=== PATIENT | male | born 1965 | race Caucasian/White ===

== ENCOUNTER 2024-05-20 21:13 | Observation (INO) | payer MEDICAID, OTHER ==
--- NOTE | 2024-05-20 21:49 | ERPHSYRPT ---
- History of Present Illness Time Seen by Provider: 05/20/24 21:40 Source: patient, family Exam Limitations: clinical condition Physician History: This is a 58-year-old white male patient brought into the emergency department by private vehicle escorted by the patient's secondary to relatively sudden onset of confusion. Patient was last known well approximately 8 PM while watching a sports event. He initially had some periods of confusion. When he went home he fell at home but did not hit his head. He is a daily smoker of cigarettes. The patient's spouse provided independent, additional history because the patient was not thinking to clearly. Patient arrives to the hospital emergency department with an initial systolic blood pressure of 225 mmHg. The second systolic blood pressure reading was 157. Patient currently denies having chest pain. However, his reminded him that he has had episodes of chest pain intermittently last week. Patient does smoke tobacco cigarettes daily. 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 His NIH score is 4. He denies headache. He denies shortness of breath. He denies abdominal pain. He has had no nausea vomiting or diarrhea symptoms. In the emergency department, his main deficit is his speech. He is moving all his extremities. There is no facial droop and his tongue is midline. He has equal strength in all of his extremities. Timing/Duration: today Severity: moderate Character of Deficits: impaired speech Baseline/Normal Cognition: alert oriented x 3 Current Cognition: alert oriented x 3 Baseline Gait: walks w/o assistance Associated Symptoms: confusion, slurred speech Allergies/Adverse Reactions: No Known Drug Allergies Allergy (Verified 05/20/24 22:16) Home Medications: No Reportable Medications [No Reported Medications] 05/20/24 [History] Travel Risk - International Travel Have you traveled outside of the country in past 3 weeks: No - Emerging Infectious Disease Are you exhibiting symptoms associated with any current EIDs: No - Review of Systems Constitutional: No Symptoms Eyes: No Symptoms Ears, Nose, & Throat: No Symptoms Respiratory: No Symptoms Cardiac: No Symptoms Abdominal/Gastrointestinal: No Symptoms Genitourinary Symptoms: No Symptoms Musculoskeletal: No Symptoms Skin: No Symptoms Neurological: Speech Changes, No Headache Psychological: No Symptoms Endocrine: No Symptoms Hematologic/Lymphatic: No Symptoms, Easy Bruising Immunological/Allergic: No Symptoms All Other Systems: Reviewed and Negative - Past Medical History Pertinent Past Medical History: No - Nursing Vital Signs Nursing Vital Signs: Initial Vital Signs Temperature 98.3 F 05/20/24 21:27 Pulse Rate 87 05/20/24 21:27 Respiratory Rate 16 05/20/24 21:27 Blood Pressure 225/141 05/20/24 21:27 O2 Sat by Pulse Oximetry 99 05/20/24 21:27 Pain Scale Pain Intensity 0 - Effie Coma Scale Best Eye Response (Effie): (4) open spontaneously Best Verbal Response (Effie): (5) oriented Best Motor Response (Carrie): (6) obeys commands Carrie Total: 15 - Physical Exam General Appearance: no apparent distress, alert, anxiety Eye Exam: bilateral eye: normal inspection, PERRL, EOMI Ears, Nose, Throat Exam: normal ENT inspection, moist mucous membranes Neck Exam: normal inspection, non-tender, supple, full range of motion Respiratory: normal breath sounds, lungs clear, airway intact, No chest tenderness, No respiratory distress Cardiovascular: regular rate/rhythm, normal heart sounds, normal peripheral puls es Gastrointestinal: soft, normal bowel sounds, No tenderness Rectal Exam: not done Back Exam: normal inspection, normal range of motion, No CVA tenderness, No vertebral tenderness Extremity Exam: normal inspection, normal range of motion, pelvis stable Mental Status: alert, oriented 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 QTc is 437) Ordered Tests: Active Orders 24 hr Category Date Time Status Electronic Technician STAT Care 05/20/24 21:49 Active EKG-ER Only STAT Care 05/20/24 21:49 Active IV Insertion STAT Care 05/20/24 21:49 Active NPO (ED) STAT Care 05/20/24 21:49 Active POCT Glucose Check STAT Care 05/20/24 21:49 Active Pulse Oximetry (ED) STAT Care 05/20/24 21:[address] ANGIOGRAPHY NECK [CT] Stat Exams 05/20/24 23:40 Completed CTA HEAD W AND/OR WO CONTRAST [CT] Stat Exams 05/20/24 23:41 Completed HEAD WITHOUT CONTRAST [CT] Stat Exams 05/20/24 21:43 Taken CBC W DIFF Stat Lab 05/20/24 21:52 Completed CMP Stat Lab 05/20/24 21:52 Completed MONO SCREEN Stat Lab 05/20/24 21:52 Completed TROPONIN Q4H Lab 05/20/24 22:00 Completed TROPONIN Q4H Lab 05/21/24 02:30 Ordered TROPONIN Q4H Lab 05/21/24 06:30 Ordered UA W/RFX UR CULTURE Stat Lab 05/20/24 22:26 Completed Urine Triage Profile Stat Lab 05/20/24 22:33 Completed Medication Summary Generic Name Dose Route Start Last Admin Trade Name Freq PRN Reason Stop Dose Admin Sodium Chloride 500 mls @ 50 mls/hr 05/20/24 22:45 05/21/24 00:07 Sodium Chloride 0.9% 500 Ml IV 06/19/24 22:44 50 mls/hr .Q10H JEFFREY Administration Discontinued Medications Generic Name Dose Route Start Last Admin Trade Name Freq PRN Reason Stop Dose Admin Alteplase, Recombinant 80 mg 05/21/24 00:19 05/21/24 00:49 Alteplase 100 Mg Vial IV 05/21/24 00:20 Not Given STAT STA Aspirin 81 mg 05/20/24 23:34 05/21/24 00:05 Aspirin 81 Mg Tab.Chew PO 05/20/24 23:35 81 mg STAT ONE Administration Aspirin Confirm 05/21/24 00:03 Aspirin 81 Mg Tab.Chew Administered 05/21/24 00:04 Dose 81 mg .ROUTE .STK-MED ONE Atorvastatin Calcium 40 mg 05/20/24 23:35 05/21/24 00:06 Atorvastatin Calcium 40 Mg Tablet PO 05/20/24 23:36 40 mg STAT STA Administration Atorvastatin Calcium Confirm 05/21/24 00:04 Atorvastatin Calcium 40 Mg Tablet Administered 05/21/24 00:05 Dose 40 mg .ROUTE .STK-MED ONE Clopidogrel Bisulfate 300 mg 05/20/24 23:34 05/21/24 00:06 Clopidogrel Bisulfate 75 Mg Tablet PO 05/20/24 23:35 300 mg STAT ONE Administration Clopidogrel Bisulfate Confirm 05/21/24 00:04 Clopidogrel Bisulfate 75 Mg Tablet Administered 05/21/24 00:05 Dose 300 mg .ROUTE .STK-MED ONE Hydralazine HCl 10 mg 05/20/24 22:05 05/21/24 00:20 Hydralazine Hcl 20 Mg/Ml Vial IV 05/20/24 22:06 Not Given STAT ONE Lab/Rad Data: Laboratory Result Diagrams 05/20/24 21:52 05/20/24 21:52 Laboratory Results 05/20/24 05/20/24 05/20/24 Range/Units 22:33 22:26 22:00 WBC (4.23-9.07) x10^3/uL RBC (4.63-6.08) x10^6/uL Hgb (13.7-17.5) g/dL Hct (40.1-51.0) % MCV (79.0-92.2) fL MCH (25.7-32.2) pg MCHC (32.3-36.5) g/dL RDW (11.6-14.4) % Plt Count (163-337) x10^3/uL MPV (9.4-12.4) fL Gran % (34.0-67.9) % Immature Gran % (Auto) (0.001-0.429) % Nucleat RBC Rel Count (0.00-0.2) % Eos # (Auto) (0.04-0.54) x10^3/uL Immature Gran # (Auto) (0.001-0.031) x10^3u/L Absolute Lymphs (auto) (1.32-3.57) x10^3/uL Absolute Monos (auto) (0.30-0.82) x10^3/uL Absolute Nucleated RBC (0.00-0.012) x10^3u/L Lymphocytes % (21.8-53.1) % Monocytes % (5.3-12.2) % Eosinophils % (0.8-7.0) % Basophils % (0.2-1.2) % Absolute Granulocytes (1.78-5.38) x10^3/uL Basophils # (0.01-0.08) x10^3/uL Sodium (135-145) mmol/L Potassium (3.5-5.1) mmol/L Chloride (98-107) mmol/L Carbon Dioxide (22-30) mmol/L Anion Gap (5-15) MEQ/L BUN (9-20) mg/dL Creatinine (0.66-1.25) mg/dL Estimated GFR ML/MIN Glucose (74-106) mg/dL Calcium (8.4-10.2) mg/dL Total Bilirubin (0.2-1.3) mg/dL AST (17-59) U/L ALT (0-50) U/L Alkaline Phosphatase (38-126) U/L Troponin I < 0.012 (0.000-0.033) ng/mL Serum Total Protein (6.3-8.2) g/dL Albumin (3.5-5.0) g/dL Urine Color Yellow (Yellow) Urine Appearance Clear (Clear) Urine pH 5.5 (4.6-8.0) Ur Specific [place] 1.020 (1.005-1.030) Urine Protein Negative (Negative) Urine Glucose (UA) Negative (Negative) mg/dL Urine Ketones Negative (Negative) Urine Blood Negative (Negative) Urine Nitrite Negative (Negative) Urine Bilirubin Negative (Negative) Urine Urobilinogen 1.0 A (0.2) mg/dL Ur Leukocyte Esterase Negative (Negative) U Hyaline Cast (Auto) NONE SEEN (0-2) /LPF Urine Microscopic RBC 0-2 (0-5) /HPF Urine Microscopic WBC 0-2 (0-5) /HPF Ur Epithelial Cells None Seen (None Seen) /HPF Urine Bacteria None Seen (None Seen) /HPF Urine Culture Reflexed NO (NO) Urine Opiates Level NEGATIVE (NEGATIVE) Ur Methadone NEGATIVE (NEGATIVE) Urine Barbiturates NEGATIVE (NEGATIVE) Ur Phencyclidine (PCP) NEGATIVE (NEGATIVE) Urine Amphetamine NEGATIVE (NEGATIVE) U Benzodiazepine Level NEGATIVE (NEGATIVE) Urine Cocaine NEGATIVE (NEGATIVE) Urine Marijuana (THC) NEGATIVE (NEGATIVE) Monoscreen (NEGATIVE) Influenza Type A Ag (NEGATIVE) Influenza Type B Ag (NEGATIVE) RSV (PCR) (NEGATIVE) SARS-CoV-2 (PCR) (NEGATIVE) 05/20/24 05/20/24 05/20/24 Range/Units 21:52 21:52 21:52 WBC 7.5 (4.23-9.07) x10^3/uL RBC 4.93 (4.63-6.08) x10^6/uL Hgb 14.1 (13.7-17.5) g/dL Hct 42.0 (40.1-51.0) % MCV 85.2 (79.0-92.2) fL MCH 28.6 (25.7-32.2) pg MCHC 33.6 (32.3-36.5) g/dL RDW 13.6 (11.6-14.4) % Plt Count 274 (163-337) x10^3/uL MPV 8.7 L (9.4-12.4) fL Gran % 57.1 (34.0-67.9) % Immature Gran % (Auto) 0.3 (0.001-0.429) % Nucleat RBC Rel Count 0.0 (0.00-0.2) % Eos # (Auto) 0.17 (0.04-0.54) x10^3/uL Immature Gran # (Auto) 0.02 (0.001-0.031) x10^3u/L Absolute Lymphs (auto) 2.28 (1.32-3.57) x10^3/uL Absolute Monos (auto) 0.66 (0.30-0.82) x10^3/uL Absolute Nucleated RBC 0.00 (0.00-0.012) x10^3u/L Lymphocytes % 30.6 (21.8-53.1) % Monocytes % 8.9 (5.3-12.2) % Eosinophils % 2.3 (0.8-7.0) % Basophils % 0.8 (0.2-1.2) % Absolute Granulocytes 4.26 (1.78-5.38) x10^3/uL Basophils # 0.06 (0.01-0.08) x10^3/uL Sodium 141 (135-145) mmol/L Potassium 3.5 (3.5-5.1) mmol/L Chloride 104 (98-107) mmol/L Carbon Dioxide 29 (22-30) mmol/L Anion Gap 11.6 (5-15) MEQ/L BUN 22 H (9-20) mg/dL Creatinine 1.24 (0.66-1.25) mg/dL Estimated GFR 66.6 ML/MIN Glucose 124 H (74-106) mg/dL Calcium 9.7 (8.4-10.2) mg/dL Total Bilirubin 0.60 (0.2-1.3) mg/dL AST 33 (17-59) U/L ALT 26 (0-50) U/L Alkaline Phosphatase 70 (38-126) U/L Troponin I (0.000-0.033) ng/mL Serum Total Protein 6.9 (6.3-8.2) g/dL Albumin 4.3 (3.5-5.0) g/dL Urine Color (Yellow) Urine Appearance (Clear) Urine pH (4.6-8.0) Ur Specific [place] (1.005-1.030) Urine Protein (Negative) Urine Glucose (UA) (Negative) mg/dL Urine Ketones (Negative) Urine Blood (Negative) Urine Nitrite (Negative) Urine Bilirubin (Negative) Urine Urobilinogen (0.2) mg/dL Ur Leukocyte Esterase (Negative) U Hyaline Cast (Auto) (0-2) /LPF Urine Microscopic RBC (0-5) /HPF Urine Microscopic WBC (0-5) /HPF Ur Epithelial Cells (None Seen) /HPF Urine Bacteria (None Seen) /HPF Urine Culture Reflexed (NO) Urine Opiates Level (NEGATIVE) Ur Methadone (NEGATIVE) Urine Barbiturates (NEGATIVE) Ur Phencyclidine (PCP) (NEGATIVE) Urine Amphetamine (NEGATIVE) U Benzodiazepine Level (NEGATIVE) Urine Cocaine (NEGATIVE) Urine Marijuana (THC) (NEGATIVE) Monoscreen NEGATIVE (NEGATIVE) Influenza Type A Ag (NEGATIVE) Influenza Type B Ag (NEGATIVE) RSV (PCR) (NEGATIVE) SARS-CoV-2 (PCR) (NEGATIVE) 05/20/24 Range/Units 21:50 WBC (4.23-9.07) x10^3/uL RBC (4.63-6.08) x10^6/uL Hgb (13.7-17.5) g/dL Hct (40.1-51.0) % MCV (79.0-92.2) fL MCH (25.7-32.2) pg MCHC (32.3-36.5) g/dL RDW (11.6-14.4) % Plt Count (163-337) x10^3/uL MPV (9.4-12.4) fL Gran % (34.0-67.9) % Immature Gran % (Auto) (0.001-0.429) % Nucleat RBC Rel Count (0.00-0.2) % Eos # (Auto) (0.04-0.54) x10^3/uL Immature Gran # (Auto) (0.001-0.031) x10^3u/L Absolute Lymphs (auto) (1.32-3.57) x10^3/uL Absolute Monos (auto) (0.30-0.82) x10^3/uL Absolute Nucleated RBC (0.00-0.012) x10^3u/L Lymphocytes % (21.8-53.1) % Monocytes % (5.3-12.2) % Eosinophils % (0.8-7.0) % Basophils % (0.2-1.2) % Absolute Granulocytes (1.78-5.38) x10^3/uL Basophils # (0.01-0.08) x10^3/uL Sodium (135-145) mmol/L Potassium (3.5-5.1) mmol/L Chloride (98-107) mmol/L Carbon Dioxide (22-30) mmol/L Anion Gap (5-15) MEQ/L BUN (9-20) mg/dL Creatinine (0.66-1.25) mg/dL Estimated GFR ML/MIN Glucose (74-106) mg/dL Calcium (8.4-10.2) mg/dL Total Bilirubin (0.2-1.3) mg/dL AST (17-59) U/L ALT (0-50) U/L Alkaline Phosphatase (38-126) U/L Troponin I (0.000-0.033) ng/mL Serum Total Protein (6.3-8.2) g/dL Albumin (3.5-5.0) g/dL Urine Color (Yellow) Urine Appearance (Clear) Urine pH (4.6-8.0) Ur Specific [place] (1.005-1.030) Urine Protein (Negative) Urine Glucose (UA) (Negative) mg/dL Urine Ketones (Negative) Urine Blood (Negative) Urine Nitrite (Negative) Urine Bilirubin (Negative) Urine Urobilinogen (0.2) mg/dL Ur Leukocyte Esterase (Negative) U Hyaline Cast (Auto) (0-2) /LPF Urine Microscopic RBC (0-5) /HPF Urine Microscopic WBC (0-5) /HPF Ur Epithelial Cells (None Seen) /HPF Urine Bacteria (None Seen) /HPF Urine Culture Reflexed (NO) Urine Opiates Level (NEGATIVE) Ur Methadone (NEGATIVE) Urine Barbiturates (NEGATIVE) Ur Phencyclidine (PCP) (NEGATIVE) Urine Amphetamine (NEGATIVE) U Benzodiazepine Level (NEGATIVE) Urine Cocaine (NEGATIVE) Urine Marijuana (THC) (NEGATIVE) Monoscreen (NEGATIVE) Influenza Type A Ag NEGATIVE (NEGATIVE) Influenza Type B Ag NEGATIVE (NEGATIVE) RSV (PCR) NEGATIVE (NEGATIVE) SARS-CoV-2 (PCR) NEGATIVE (NEGATIVE) - Progress Progress: improved, re-examined Progress Note: 05/20/24 22:30 My medical decision making and the assignment of high complexity to this jessica ent's medical issue today is based on review of the patient's past medical history, review the patient's medication list, reviewed patient drug allergy list, history present illness and physical findings on examination. The workup in this patient includes placement of intravenous line, CBC, CMP, troponin level, twelve-lead EKG, stat CT scan of the head without contrast on arrival, urinalysis, urine drug screen, viral swabs, magnesium level Differential diagnosis includes was not limited to acute intracranial abnormality, electrolyte abnormality, dehydration, myocardial infarction, arrhythmia, urinary tract infection, dehydration 05/20/24 22:[address] scan of the head without contrast was interpreted by the radiologist. The report reads no comparison studies. Nonacute senile brain with remote lacunar infarcts left basal ganglia and left caudate lobe 05/20/24 23:02 The teleneurologist, Dr. Vazquez evaluated this patient. He feels this patient is a candidate for tPA. He spoke with the patient and the patient's spouse in detail. He states and I agree that there are no contraindications for this patient receiving the tPA. We will provide the initial bolus dose of 8 mg intravenously followed by the remaining 72 mg intravenously over an hour. We will be transferring this patient. He also recommended to keep the systolic blood pressure less than 185 and the diastolic blood pressure less than 110 and. He prefers labetalol over hydralazine but both medications can be used if needed. 05/20/24 23:35 Dr. Vazquez, the teleneurologist, called back and told us to hold off on provide this patient tPA. He reexamined the patient just before starting the tPA. He wanted to be sure that the patient's symptoms were still present. However, he reexamined the patient and the symptoms have completely resolved. Therefore he recommended the CTA of the head as well as CT angiography of the neck and placement in the hospital with stroke workup. He also recommends Plavix bolus of 300 mg orally now followed by Plavix 75 mg orally each night for 21 days. He also recommends 81 mg of aspirin now and orally each morning. In addition, he recommends atorvastatin 40 mg now and daily. 05/21/24 00:36 CT angiography of the neck shows no evidence of significant vascular abnormalities, stenosis or aneurysm. This study was interpreted by the radiologist. CTA of the head was interpreted by the radiologist and I reviewed the impression. This study is normal. There is no evidence of significant vascular abnormality. There is a small focal area of hypodensity in the left caudate head nucleus. The age is indeterminate. MRI of the brain recommended. 05/21/24 01:[address] Ocampo, our telehospitalist. I reviewed the patient history, presenting complaint, physical findings on examination and the workup results with him as well as my discussion with the teleneurologist and that recommended inpatient stroke workup. He agrees to place this patient in observation. Will place him on a monitored bed. Discussed with : Juanita Counseled pt/family regarding: lab results, diagnosis, rad results Medical Desision Making - Independent Historian Additional History obtained from: Spouse - Discussion of managment Care discussed with:: hospitalist (Dr. Ocampo and teleneurologist Dr. Vazquez) - Diagnostic Testing Diagnostic test were ordered, analyzed, and reviewed by me: Yes Radiological Interpretation: Reviewed by me, Teleradiologist Report - Risk of complications The pt has a high risk of morbidity or mortality based on: Decision regarding hospitilization or escalation of hosp level of care - Departure Departure Disposition: Observation Clinical Impression: CVA (cerebral vascular accident), Aphasia Condition: Stable Critical Care Time: Yes Critical Care Time(excluding separately billable procedures): Critical 30-74 mins (55) Referrals: DOCTOR,NO FAMILY [Primary Care Provider] - Follow up/PCP as directed
[2024-05-20 21:55] LABS: Absolute Neutrophil Ct (ANC) 4.26 x10^3/uL (1.78-5.38); BASOPHIL % 0.8 % (0.2-1.2); Basophil (Absolute #) 0.06 x10^3/uL (0.01-0.08); Eosinophil % 2.3 % (0.8-7.0); Eosinophil (Absolute #) 0.17 x10^3/uL (0.04-0.54); Hemoglobin 14.1 g/dL (13.7-17.5); IMMATURE GRAN # 0.02 x10^3u/L (0.001-0.031); IMMATURE GRAN % 0.3 % (0.001-0.429); Lymphocyte (Absolute #) 2.28 x10^3/uL (1.32-3.57); Lymphocytes % 30.6 % (21.8-53.1); Mean Cell Volume 85.2 fL (79.0-92.2); Mean Corpuscular Hemoglobin 28.6 pg (25.7-32.2); Mean Corpuscular Hgb Concent. 33.6 g/dL (32.3-36.5); Mean Platelet Volume 8.7 fL (9.4-12.4); Monocyte (Absolute #) 0.66 x10^3/uL (0.30-0.82); Monocytes % 8.9 % (5.3-12.2); Neutrophil % 57.1 % (34.0-67.9); Platelet Count 274 x10^3/uL (163-337); Red Blood Count 4.93 x10^6/uL (4.63-6.08); Red Cell Distribution Width 13.6 % (11.6-14.4); White Blood Count 7.5 x10^3/uL (4.23-9.07)
[2024-05-20 22:06] LABS: ALBUMIN 4.3 g/dL (3.5-5.0); ANION GAP 11.6 MEQ/L (5-15); BILIRUBIN,TOTAL 0.6 mg/dL (0.2-1.3); Calcium 9.7 mg/dL (8.4-10.2); Creatinine 1 1.24 mg/dL (0.66-1.25); EST GLOMERULAR FILTRATION RATE 66.6 ML/MIN; Potassium 3.5 mmol/L (3.5-5.1); Total Protein 6.9 g/dL (6.3-8.2)
[2024-05-20 22:34] LABS: Appearance Clear (Clear); Bacteria None Seen /HPF (None Seen); Bilirubin Negative (Negative); Blood Negative (Negative); Epithelial Cells None Seen /HPF (None Seen); Glucose, Urine Negative (Negative); Hyaline Casts NONE SEEN /LPF (0-2); Ketones Negative (Negative); Leukocyte Esterase Negative (Negative); Nitrite Negative (Negative); Ph 5.5 (4.6-8.0); Protein,Urine Dip Negative (Negative); RBC 0-2 /HPF (0-5); WBC 0-2 /HPF (0-5)
[2024-05-20 22:43] LABS: INFLUENZA A NEGATIVE (NEGATIVE); INFLUENZA B NEGATIVE (NEGATIVE); RESPIRATORY SYNCTIAL VIRUS NEGATIVE (NEGATIVE); SARS-CoV-2 Xpert Express NEGATIVE (NEGATIVE)
[2024-05-20 22:55] LABS: Amphetamine,Urine NEGATIVE (NEGATIVE); Barbiturate,Urine NEGATIVE (NEGATIVE); Benzodiazepine,Urine NEGATIVE (NEGATIVE); Cocaine,Urine NEGATIVE (NEGATIVE); Methadone,Urine NEGATIVE (NEGATIVE); Opiate,Urine NEGATIVE (NEGATIVE); PCP,Urine NEGATIVE (NEGATIVE); THC,Urine NEGATIVE (NEGATIVE)
--- NOTE | 2024-05-20 23:30 | PCM.CONS ---
History of Present Illness - Neuro Consultation Date of Consultation Date: 05/20/24 ED Arrival Date & Time: 05/20/24 21:13 Providers: Attending Provider: ED Provider: BRIONNA HUNTER Consulting Provider: ROYAL CORMIER DO cc:: The requesting physician will be sent a copy of the consult. - Chief Complaint Patient Subjective Stated Complaint: difficulty speaking - History of Present Illness HPI: right-handed. MedHx: HLD, HTN but on no meds. LKW 1999 today. has difficulty speaking since 8pm tonight. he was watching a volleyball, his granddaughter asked him for food, but he had difficulty getting money out of his wallet. drove home, then he fell at home. he seemed confused on the car ride home. he reported his right hand felt tingling and his legs felt funny. no similar episodes before. no stroke hx. denies any weakness. BP on arrival 224/140, lowered on its own 164/94. no blood thinners. no aspirin. Known stroke risk factors:: Hypertension, Dyslipidemia Review of Systems - Review of Systems Review of Systems (Narrative): Pertinent positive and negative findings as per HPI. All other systems negative. - Past Medical History Past Medical History: No Neurological History: No Pertinent History Cardiac History: Hypertension - Past Surgical History Past Surgical History: Yes Other Surgical History: hand surgery - Social History Smoking Status: Current every day smoker How long have you smoked: 45 Exposure to second hand smoke: No Alcohol: None Drug Use: none - Social Determinants of Health Will the patient participate in the screening: Yes Do you worry about a steady place to live?: No Do you have any problems with any of the following?: No known problems In the past 12 months,have you had to go without utilities?: No Have you or anyone in your house had to go without enough: No Transportation Issues: No Has anyone in your support network made you feel unsafe?: No Physical Exam - Vital Signs Vital Signs: Vital Signs - 24 hr 05/20/24 05/20/24 05/20/24 21:27 21:49 22:04 Temperature 98.3 F Pulse Rate 87 Respiratory 16 Rate Blood Pressure 157/100 Blood Pressure 225/141 [Right Arm] O2 Sat by Pulse 99 99 97 Oximetry 05/20/24 05/20/24 22:30 23:01 Temperature Pulse Rate 65 59 L Respiratory 18 13 Rate Blood Pressure 164/95 161/89 Blood Pressure [Right Arm] O2 Sat by Pulse 97 99 Oximetry - Physical Exam Tele-Neuro Physical Exam (Narrative): Gen: Well developed, well nourished. No acute distress. MS: Awake and oriented. Alert. Fund of knowledge, memory difficult to test given aphasia. comprehension intact, fluency mild to moderately impaired. articulation slightly impaired. CV: Regular rate. No edema. emergency services director: [place], EOMI. +blink. Unable to visualize fundi. Sensation intact. Face is symmetric. Hearing intact. Shoulder shrug intact. Tongue midline. Motor: Antigravity in all 4 extremities. Normal tone and bulk. Sens: reduced light touch on RUE. MSR: Unable to assess through telemedicine, no clonus noted. Mvmt: No tremors noted. RAFAEL/FTN intact. Gait: Deferred. NIH Stroke Scale NIH Stroke Scale Score: 3 1. Level of Consciousness: 0 : alert; keenly responsive. 1a. LOC Questions: 0 : Answers both questions correctly. 1b. LOC Commands: 0 : Performs both tasks correctly. 2. Best Gaze: 0 : Normal. 3. Visual: 0 : No visual loss. 4. Facial Palsy: 0 : Normal symmetrical movements. 5a. Motor Left Arm: 0 : No drift; limb holds 90 (or 45) degrees for full 10 seconds. 5b. Motor Right Arm : 0 : No drift; limb holds 90 (or 45) degrees for full 10 seconds. 6a. Motor Left Le : No drift; leg holds 30-degree position for full 5 seconds. 6b. Motor Right Le : No drift; leg holds 30-degree position for full 5 seconds. 7. Limb Ataxia: 0 : Absent. 8. Sensory: 1 : Mafn-bu-nuhyjobg sensory loss; patient feels pinprick is less sharp or is dull on the affected side; or there is a loss of superficial pain with pinprick, but patient is aware of being touched. 9. Best Language: 1 : Ivho-aj-kdvtapyy aphasia; some obvious loss of fluency or facility of comprehension, without significant limitation on ideas expressed or form of expression. Reduction of speech and/or comprehension, however, makes conversation about provided materials difficult or impossible. For example, in conversation about provided materials, examiner can identify picture or naming card content from patients response. 10. Dysarthria: 1 : Qxzy-zv-izjdlrld dysarthria; patient slurs at least some words and, at worst, can be understood with some difficulty. 11. Extinction and inattention (formerly Neglect) : 0 : No abnormality. NIHSS Entry Time: 05/20/2024 10:56:43 PM ET - NIHSS Stroke Scale Date Completed: 05/20/24 Time Stroke Scale Completed: 23:17 Results - Labs Lab/Micro Results: Lab Results-Last 24 Hours 05/20/24 05/20/24 05/20/24 Range/Units 21:50 21:52 21:52 WBC 7.5 (4.23-9.07) x10^3/uL RBC 4.93 (4.63-6.08) x10^6/uL Hgb 14.1 (13.7-17.5) g/dL Hct 42.0 (40.1-51.0) % MCV 85.2 (79.0-92.2) fL MCH 28.6 (25.7-32.2) pg MCHC 33.6 (32.3-36.5) g/dL RDW 13.6 (11.6-14.4) % Plt Count 274 (163-337) x10^3/uL MPV 8.7 L (9.4-12.4) fL Gran % 57.1 (34.0-67.9) % Immature Gran % (Auto) 0.3 (0.001-0.429) % Nucleat RBC Rel Count 0.0 (0.00-0.2) % Eos # (Auto) 0.17 (0.04-0.54) x10^3/uL Immature Gran # (Auto) 0.02 (0.001-0.031) x10^3u/L Absolute Lymphs (auto) 2.28 (1.32-3.57) x10^3/uL Absolute Monos (auto) 0.66 (0.30-0.82) x10^3/uL Absolute Nucleated RBC 0.00 (0.00-0.012) x10^3u/L Lymphocytes % 30.6 (21.8-53.1) % Monocytes % 8.9 (5.3-12.2) % Eosinophils % 2.3 (0.8-7.0) % Basophils % 0.8 (0.2-1.2) % Absolute Granulocytes 4.26 (1.78-5.38) x10^3/uL Basophils # 0.06 (0.01-0.08) x10^3/uL Sodium 141 (135-145) mmol/L Potassium 3.5 (3.5-5.1) mmol/L Chloride 104 (98-107) mmol/L Carbon Dioxide 29 (22-30) mmol/L Anion Gap 11.6 (5-15) MEQ/L BUN 22 H (9-20) mg/dL Creatinine 1.24 (0.66-1.25) mg/dL Estimated GFR 66.6 ML/MIN Glucose 124 H (74-106) mg/dL Calcium 9.7 (8.4-10.2) mg/dL Total Bilirubin 0.60 (0.2-1.3) mg/dL AST 33 (17-59) U/L ALT 26 (0-50) U/L Alkaline Phosphatase 70 (38-126) U/L Troponin I (0.000-0.033) ng/mL Serum Total Protein 6.9 (6.3-8.2) g/dL Albumin 4.3 (3.5-5.0) g/dL Urine Color (Yellow) Urine Appearance (Clear) Urine pH (4.6-8.0) Ur Specific Hubbard (1.005-1.030) Urine Protein (Negative) Urine Glucose (UA) (Negative) mg/dL Urine Ketones (Negative) Urine Blood (Negative) Urine Nitrite (Negative) Urine Bilirubin (Negative) Urine Urobilinogen (0.2) mg/dL Ur Leukocyte Esterase (Negative) U Hyaline Cast (Auto) (0-2) /LPF Urine Microscopic RBC (0-5) /HPF Urine Microscopic WBC (0-5) /HPF Ur Epithelial Cells (None Seen) /HPF Urine Bacteria (None Seen) /HPF Urine Culture Reflexed (NO) Urine Opiates Level (NEGATIVE) Ur Methadone (NEGATIVE) Urine Barbiturates (NEGATIVE) Ur Phencyclidine (PCP) (NEGATIVE) Urine Amphetamine (NEGATIVE) U Benzodiazepine Level (NEGATIVE) Urine Cocaine (NEGATIVE) Urine Marijuana (THC) (NEGATIVE) Monoscreen (NEGATIVE) Influenza Type A Ag NEGATIVE (NEGATIVE) Influenza Type B Ag NEGATIVE (NEGATIVE) RSV (PCR) NEGATIVE (NEGATIVE) SARS-CoV-2 (PCR) NEGATIVE (NEGATIVE) 05/20/24 05/20/24 05/20/24 Range/Units 21:52 22:00 22:26 WBC (4.23-9.07) x10^3/uL RBC (4.63-6.08) x10^6/uL Hgb (13.7-17.5) g/dL Hct (40.1-51.0) % MCV (79.0-92.2) fL MCH (25.7-32.2) pg MCHC (32.3-36.5) g/dL RDW (11.6-14.4) % Plt Count (163-337) x10^3/uL MPV (9.4-12.4) fL Gran % (34.0-67.9) % Immature Gran % (Auto) (0.001-0.429) % Nucleat RBC Rel Count (0.00-0.2) % Eos # (Auto) (0.04-0.54) x10^3/uL Immature Gran # (Auto) (0.001-0.031) x10^3u/L Absolute Lymphs (auto) (1.32-3.57) x10^3/uL Absolute Monos (auto) (0.30-0.82) x10^3/uL Absolute Nucleated RBC (0.00-0.012) x10^3u/L Lymphocytes % (21.8-53.1) % Monocytes % (5.3-12.2) % Eosinophils % (0.8-7.0) % Basophils % (0.2-1.2) % Absolute Granulocytes (1.78-5.38) x10^3/uL Basophils # (0.01-0.08) x10^3/uL Sodium (135-145) mmol/L Potassium (3.5-5.1) mmol/L Chloride (98-107) mmol/L Carbon Dioxide (22-30) mmol/L Anion Gap (5-15) MEQ/L BUN (9-20) mg/dL Creatinine (0.66-1.25) mg/dL Estimated GFR ML/MIN Glucose (74-106) mg/dL Calcium (8.4-10.2) mg/dL Total Bilirubin (0.2-1.3) mg/dL AST (17-59) U/L ALT (0-50) U/L Alkaline Phosphatase (38-126) U/L Troponin I < 0.012 (0.000-0.033) ng/mL Serum Total Protein (6.3-8.2) g/dL Albumin (3.5-5.0) g/dL Urine Color Yellow (Yellow) Urine Appearance Clear (Clear) Urine pH 5.5 (4.6-8.0) Ur Specific [place] 1.020 (1.005-1.030) Urine Protein Negative (Negative) Urine Glucose (UA) Negative (Negative) mg/dL Urine Ketones Negative (Negative) Urine Blood Negative (Negative) Urine Nitrite Negative (Negative) Urine Bilirubin Negative (Negative) Urine Urobilinogen 1.0 A (0.2) mg/dL Ur Leukocyte Esterase Negative (Negative) U Hyaline Cast (Auto) NONE SEEN (0-2) /LPF Urine Microscopic RBC 0-2 (0-5) /HPF Urine Microscopic WBC 0-2 (0-5) /HPF Ur Epithelial Cells None Seen (None Seen) /HPF Urine Bacteria None Seen (None Seen) /HPF Urine Culture Reflexed NO (NO) Urine Opiates Level (NEGATIVE) Ur Methadone (NEGATIVE) Urine Barbiturates (NEGATIVE) Ur Phencyclidine (PCP) (NEGATIVE) Urine Amphetamine (NEGATIVE) U Benzodiazepine Level (NEGATIVE) Urine Cocaine (NEGATIVE) Urine Marijuana (THC) (NEGATIVE) Monoscreen NEGATIVE (NEGATIVE) Influenza Type A Ag (NEGATIVE) Influenza Type B Ag (NEGATIVE) RSV (PCR) (NEGATIVE) SARS-CoV-2 (PCR) (NEGATIVE) 05/20/24 Range/Units 22:33 WBC (4.23-9.07) x10^3/uL RBC (4.63-6.08) x10^6/uL Hgb (13.7-17.5) g/dL Hct (40.1-51.0) % MCV (79.0-92.2) fL MCH (25.7-32.2) pg MCHC (32.3-36.5) g/dL RDW (11.6-14.4) % Plt Count (163-337) x10^3/uL MPV (9.4-12.4) fL Gran % (34.0-67.9) % Immature Gran % (Auto) (0.001-0.429) % Nucleat RBC Rel Count (0.00-0.2) % Eos # (Auto) (0.04-0.54) x10^3/uL Immature Gran # (Auto) (0.001-0.031) x10^3u/L Absolute Lymphs (auto) (1.32-3.57) x10^3/uL Absolute Monos (auto) (0.30-0.82) x10^3/uL Absolute Nucleated RBC (0.00-0.012) x10^3u/L Lymphocytes % (21.8-53.1) % Monocytes % (5.3-12.2) % Eosinophils % (0.8-7.0) % Basophils % (0.2-1.2) % Absolute Granulocytes (1.78-5.38) x10^3/uL Basophils # (0.01-0.08) x10^3/uL Sodium (135-145) mmol/L Potassium (3.5-5.1) mmol/L Chloride (98-107) mmol/L Carbon Dioxide (22-30) mmol/L Anion Gap (5-15) MEQ/L BUN (9-20) mg/dL Creatinine (0.66-1.25) mg/dL Estimated GFR ML/MIN Glucose (74-106) mg/dL Calcium (8.4-10.2) mg/dL Total Bilirubin (0.2-1.3) mg/dL AST (17-59) U/L ALT (0-50) U/L Alkaline Phosphatase (38-126) U/L Troponin I (0.000-0.033) ng/mL Serum Total Protein (6.3-8.2) g/dL Albumin (3.5-5.0) g/dL Urine Color (Yellow) Urine Appearance (Clear) Urine pH (4.6-8.0) Ur Specific [place] (1.005-1.030) Urine Protein (Negative) Urine Glucose (UA) (Negative) mg/dL Urine Ketones (Negative) Urine Blood (Negative) Urine Nitrite (Negative) Urine Bilirubin (Negative) Urine Urobilinogen (0.2) mg/dL Ur Leukocyte Esterase (Negative) U Hyaline Cast (Auto) (0-2) /LPF Urine Microscopic RBC (0-5) /HPF Urine Microscopic WBC (0-5) /HPF Ur Epithelial Cells (None Seen) /HPF Urine Bacteria (None Seen) /HPF Urine Culture Reflexed (NO) Urine Opiates Level NEGATIVE (NEGATIVE) Ur Methadone NEGATIVE (NEGATIVE) Urine Barbiturates NEGATIVE (NEGATIVE) Ur Phencyclidine (PCP) NEGATIVE (NEGATIVE) Urine Amphetamine NEGATIVE (NEGATIVE) U Benzodiazepine Level NEGATIVE (NEGATIVE) Urine Cocaine NEGATIVE (NEGATIVE) Urine Marijuana (THC) NEGATIVE (NEGATIVE) Monoscreen (NEGATIVE) Influenza Type A Ag (NEGATIVE) Influenza Type B Ag (NEGATIVE) RSV (PCR) (NEGATIVE) SARS-CoV-2 (PCR) (NEGATIVE) - Radiology Orders Radiology Orders: Radiology Procedures Category Date Time Status CT ANGIOGRAPHY NECK [CT] Stat Exams 05/20/24 22:33 Ordered CTA HEAD W AND/OR WO CONTRAST [CT] Stat Exams 05/20/24 22:33 Ordered HEAD WITHOUT CONTRAST [CT] Stat Exams 05/20/24 21:43 Taken Impressions & Recommendations - ED Arrival Time ED Arrival Date & Time: ED Arrival Date and Time 05/20/24 21:13 Last known well time: - NIHSS NIHSS: 0 Pre-Admission mRS: 0 Is patient an IV TPA candidate (if no specify reason): No If not, specify reason:: resolved symptoms Treatment decision time:: 23:05 (was initially a candidate when he was symp tomatic, decision made 2247. symptoms resolved by 2305.) Candidate (No): Reason: Patient is not a candidat - Recommendations Recommendations: Assessment: LKW 8pm, symptom of expressive aphasia. understands well, cannot speak fluently. denies weakness. has some numbness and tingling of right arm. CTH shows no acute changes. SBP 220s on arrival, he lowered to 160s on his own. sx are disabling, he is candidate for tpa. reviewed indications and contraindications, he is candidate for tpa. reviewed risks and benefits of tpa. patient and are willing to go with tpa. decision communicated [address] Hunter. informed to use hydralazine 10mg or labetalol 10mg if BP goes above 185/110. possible LVO though aphasia with numbness is not a typical LVO syndrome. at 2305 the tpa was just about to be started. on final reevaluation of his symptoms, his speech was fluent and he feels back to baseline. reports he is pretty close to baseline. at this time, his symptoms are nearly resolved/nondisabling. informed nurse to not hang the tpa. possible TIA vs more likely stroke with resolved symptoms. ACBD2 score 5. LKW 1999. tpa decision 2240 tpa decision communicated 2247 tpa cancelled 2304 just as it was going to be hung due to resolution of symptoms. Recommendations: - if symptoms return, please call back emergently as he would be a tpa candidate. - emergent CTA head/neck to eval for LVO, though even lower suspicion now given sx have resolved. - if CTA shows LVO, please transfer emergently to nearest thrombectomy capable center, though likely would not be candidate due to resolved symptoms. -MRI brain without contrast -TTE with bubble study -lipid profile, a1c, TSH -ECG/telemetry -aspirin 81mg now then daily - give plavix 300mg now then start plavix 75mg daily for 21 days, then stop plavix. For high risk TIA ABCD2 score >4 -atorvastatin 40mg qhs -Permissive BP control <220/<120 mmHg until 24hours from LKW, then lower 15% every 24 hours thereafter until 72 hours, then normalize BP. If MRI obtained while in permissive BP window and shows no stroke, can safely normalize BP at that time. - LDL goal <70. a1c goal <7.0% - physical, occupational, speech therapy Impression and recommendation were discussed with Dr. BRIONNA HUNTER Thank you for allowing us to participate in this patient's care. Please call [facility] with questions, concerns, or change in patient's neurological status. This consult was performed via secure telemedicine audio/visual platform with RN assisting at bedside. Patient identity verified and consent obtained. TIQ received at [2222] Neuro Cart Time: 2224 Delays in Patient Encounter: none Assessment & Plan - Encounter Encounter: "The entirety of this encounter was performed via Telemedicine using audio and visual "
[2024-05-21] MEDS ORDERED: BABY ASPIRIN 81 MG CHEW ONE (00:03)
[2024-05-21] MEDS ORDERED: LIPITOR 40MG ONE (00:04)
[2024-05-21] MEDS ORDERED: PLAVIX Tablet ONE (00:04)
[2024-05-21] MEDS ORDERED: Sodium Chloride 0.9% 500 ML 500 ML IV ONE (00:04)
[2024-05-21] MEDS: BABY ASPIRIN 81 MG CHEW PO ONE (00:05)
[2024-05-21] MEDS: PLAVIX Tablet PO ONE (00:06)
[2024-05-21] MEDS: LIPITOR 40MG PO STA (00:06)
[2024-05-21] MEDS: Sodium Chloride 0.9% 500 ML 500 ML IV SCH (00:07)
[2024-05-21] MEDS: APRESOLINE 20 MG/ML INJ IV ONE (00:20)
--- NOTE | 2024-05-21 00:25 | XRAY ---
CLINICAL HISTORY: Stroke symptoms COMPARISON: None. TECHNIQUE: CT angiography of the head and neck was performed following the intravenous administration of [100 CC Isovue 370] of iodinated contrast material. Axial images were obtained from the aortic arch to the vertex. Coronal and sagittal reformatted images were also reviewed. One of the following dose-reduction techniques was utilized for this exam. Automated exposure control, adjustment of the mA and/or kV according to patient size, and use of iterative reconstruction. One of these 3D techniques was utilized: Maximum Intensity Pixel (MIP), 3D Reconstructed Images, Volume Rendered Images, Surface Shaded Rendering. FINDINGS: Carotid Arteries: The common, internal, and external carotid arteries are patent bilaterally with no evidence of significant stenosis, aneurysm, or dissection. Small calcifications in the right carotid bulb. There is no other evidence of atherosclerotic plaque causing significant luminal narrowing. Vertebral Arteries: The vertebral arteries are patent bilaterally with no evidence of significant stenosis, aneurysm, or dissection. Thyroid Gland: Small hypodense nodules in the right thyroid gland. Lymph Nodes: There is no evidence of significant lymphadenopathy in the neck. Soft Tissues: The soft tissues of the neck are unremarkable with no evidence of masses or abnormal collections. Additional Findings: No other significant findings are noted. IMPRESSION: No evidence of significant vascular abnormalities, stenosis or aneurysm. Electronically Signed by: Thomas Irene MD. (05/21/2024 00:21:55 EDT)
--- NOTE | 2024-05-21 00:25 | XRAY ---
CLINICAL HISTORY: Stroke symptoms COMPARISON: None TECHNIQUE: CT angiography of the head was performed following the intravenous administration of contrast material. Contiguous axial images were obtained from the base of the skull to the vertex. Coronal and sagittal reformatted images were also reviewed. One of these 3D techniques was utilized: Maximum Intensity Pixel (MIP), 3D Reconstructed Images, Volume Rendered Images, Surface Shaded Rendering. One of the following dose reduction techniques was utilized for this exam. Automated exposure control, adjustment of the mA and/or kV according to patient size, and use of iterative reconstruction. FINDINGS: Intracranial Arteries: The intracranial arteries, including the anterior cerebral arteries, middle cerebral arteries, posterior cerebral arteries, basilar artery, and vertebral arteries, are all patent without evidence of significant stenosis, aneurysm, or dissection. There is no evidence of vascular malformations. [place]: The [place] is intact with no anatomical variations or abnormalities noted. All segments are well-visualized and normal in appearance. Venous System: The visualized portions of the venous system, including the dural venous sinuses, are patent with no evidence of thrombosis. Brain Parenchyma: Small focal area of hypodensity in the left caudate head nucleus. The ventricles and sulci are normal in size and configuration. Bones: The bony structures of the skull are intact without evidence of fracture or destructive lesions. Soft Tissues: The visualized soft tissues of the head are unremarkable. Additional Findings: Small calcifications in the cavernous, clinoid and supraclinoid glenoid segments of bilateral ICAs. IMPRESSION: 1. Normal CT angiography of the head. No evidence of significant vascular abnormalities. 2. Small focal area of hypodensity in the left caudate head nucleus, consider age indeterminate infarct. Acute/subacute infarct cannot be excluded totally. Suggest further evaluation with MRI if clinically warranted. Electronically Signed by: Thomas Irene MD. (05/21/2024 00:21:04 EDT)
[2024-05-21] MEDS: Activase 100 MG IV STA (00:49)
[2024-05-21] MEDS ORDERED: TYLENOL 325 MG PO PRN (02:10)
[2024-05-21] MEDS ORDERED: Zofran 4 MG/2 ML VIAL IV PRN (02:10)
--- NOTE | 2024-05-21 04:03 | PCM.HP ---
History of Present Illness - Chief Complaint Chief Complaint: TIA Date: 05/21/24 History of Present Illness: Mr. Prieto is a 58 year-old with HTN, not on medication, who presented with altered mental status. As per his , he was at a sporting event (volleyball game), and he became confused - upon returning home he remained confused thus prompting further medical attention at [place]. Upon arrival, his blood pressure was noted be in the 220s systolic in the setting of unremarkable laboratory data and unremarkable brain imaging (CT and CTA). Soon after arriving in the ED, his systolic blood pressure dropped into the 150s, and his mental sta tus started to improve. On my examination, he is alert, oriented, and has a normal neurological exam. He currently denies fevers, chills, nausea, vomiting, diarrhea, syncope, presyncope, visual changes, orthopnea, PND, odynophagia, dysphagia, chest pain, shortness of breath, belly pain, dysuria, hematuria, melena, hematochezia, or neurological changes. All other systems were reviewed and were negative. - Review of Systems Constitutional: No Other ( PER HPI) Medications & Allergies Home Medications: Home Medication List No Reportable Medications [No Reported Medications] 05/20/24 [History Confirmed 05/20/24] Allergies/Adverse Reactions: Allergies Allergy/AdvReac Type Severity Reaction Status Date / Time No Known Drug Allergies Allergy Verified 05/20/24 22:16 - Past Medical History Past Medical History: No Neurological History: No Pertinent History ENT History: No Pertinent History Cardiac History: Hypertension Respiratory History: No Pertinent History Endocrine Medical History: No Pertinent History Musculoskelatal History: No Pertinent History GI Medical History: No Pertinent History History: No Pertinent History Pyscho-Social History: No Pertinent History Male Reproductive Disorders: No Pertinent History - Past Surgical History Past Surgical History: Yes Neuro Surgical History: No Pertinent History Cardiac History: No Pertinent History Respiratory Surgery: No Pertinent History GI Surgical History: No Pertinent History Genitourinary Surgical Hx: No Pertinent History Male Surgical History: No Pertinent History Other Surgical History: hand surgery - Social History Smoking Status: Current every day smoker How long have you smoked: 45 Exposure to second hand smoke: No Alcohol: None Drug Use: none - Social Determinants of Health Will the patient participate in the screening: Yes Do you worry about a steady place to live?: No Do you have any problems with any of the following?: No known problems In the past 12 months,have you had to go without utilities?: No Have you or anyone in your house had to go without enough: No Transportation Issues: No Has anyone in your support network made you feel unsafe?: No Does the patient want assistance with any of the above?: No - Physical Exam Vital Signs: Vital Signs - 24 hr Temp Pulse Resp BP BP Pulse Ox 05/21/24 02:18 90.0 F 56 L 16 167/85 98 05/21/24 01:30 53 L 14 146/96 97 05/21/24 01:00 74 16 174/104 99 05/21/24 00:30 59 L 19 151/96 98 05/21/24 00:00 64 20 153/95 98 05/20/24 23:30 66 13 160/91 98 05/20/24 23:01 63 16 161/89 100 05/20/24 22:30 65 18 164/95 97 05/20/24 22:04 157/100 97 05/20/24 21:49 99 05/20/24 21:27 98.3 F 87 16 225/141 99 General Appearance: no apparent distress, alert Neurologic Exam: alert, oriented x 3, cooperative, normal mood/affect, nml cerebellar function, nml station & gait, sensation nml, No motor deficits Eye Exam: PERRL/EOMI, eyes nml inspection Ears, Nose, Throat Exam: normal ENT inspection, TMs normal, pharynx normal, moist mucous membranes Neck Exam: normal inspection, non-tender, supple, full range of motion Respiratory Exam: normal breath sounds, lungs clear, No respiratory distress Cardiovascular Exam: regular rate/rhythm, normal heart sounds, normal peripheral pulses Gastrointestinal/Abdomen Exam: soft, normal bowel sounds, No tenderness, No mass Extremity Exam: normal inspection, normal range of motion, pelvis stable Skin Exam: normal color, warm, dry, No rash Lymphatic Exam: No adenopathy Results - Labs Lab/Micro Results: Lab Results-Last 24 Hours 05/20/24 05/20/24 05/20/24 Range/Units 21:50 21:52 21:52 WBC 7.5 (4.23-9.07) x10^3/uL RBC 4.93 (4.63-6.08) x10^6/uL Hgb 14.1 (13.7-17.5) g/dL Hct 42.0 (40.1-51.0) % MCV 85.2 (79.0-92.2) fL MCH 28.6 (25.7-32.2) pg MCHC 33.6 (32.3-36.5) g/dL RDW 13.6 (11.6-14.4) % Plt Count 274 (163-337) x10^3/uL MPV 8.7 L (9.4-12.4) fL Gran % 57.1 (34.0-67.9) % Immature Gran % (Auto) 0.3 (0.001-0.429) % Nucleat RBC Rel Count 0.0 (0.00-0.2) % Eos # (Auto) 0.17 (0.04-0.54) x10^3/uL Immature Gran # (Auto) 0.02 (0.001-0.031) x10^3u/L Absolute Lymphs (auto) 2.28 (1.32-3.57) x10^3/uL Absolute Monos (auto) 0.66 (0.30-0.82) x10^3/uL Absolute Nucleated RBC 0.00 (0.00-0.012) x10^3u/L Lymphocytes % 30.6 (21.8-53.1) % Monocytes % 8.9 (5.3-12.2) % Eosinophils % 2.3 (0.8-7.0) % Basophils % 0.8 (0.2-1.2) % Absolute Granulocytes 4.26 (1.78-5.38) x10^3/uL Basophils # 0.06 (0.01-0.08) x10^3/uL Sodium 141 (135-145) mmol/L Potassium 3.5 (3.5-5.1) mmol/L Chloride 104 (98-107) mmol/L Carbon Dioxide 29 (22-30) mmol/L Anion Gap 11.6 (5-15) MEQ/L BUN 22 H (9-20) mg/dL Creatinine 1.24 (0.66-1.25) mg/dL Estimated GFR 66.6 ML/MIN Glucose 124 H (74-106) mg/dL Calcium 9.7 (8.4-10.2) mg/dL Total Bilirubin 0.60 (0.2-1.3) mg/dL AST 33 (17-59) U/L ALT 26 (0-50) U/L Alkaline Phosphatase 70 (38-126) U/L Troponin I (0.000-0.033) ng/mL Serum Total Protein 6.9 (6.3-8.2) g/dL Albumin 4.3 (3.5-5.0) g/dL Urine Color (Yellow) Urine Appearance (Clear) Urine pH (4.6-8.0) Ur Specific [place] (1.005-1.030) Urine Protein (Negative) Urine Glucose (UA) (Negative) mg/dL Urine Ketones (Negative) Urine Blood (Negative) Urine Nitrite (Negative) Urine Bilirubin (Negative) Urine Urobilinogen (0.2) mg/dL Ur Leukocyte Esterase (Negative) U Hyaline Cast (Auto) (0-2) /LPF Urine Microscopic RBC (0-5) /HPF Urine Microscopic WBC (0-5) /HPF Ur Epithelial Cells (None Seen) /HPF Urine Bacteria (None Seen) /HPF Urine Culture Reflexed (NO) Urine Opiates Level (NEGATIVE) Ur Methadone (NEGATIVE) Urine Barbiturates (NEGATIVE) Ur Phencyclidine (PCP) (NEGATIVE) Urine Amphetamine (NEGATIVE) U Benzodiazepine Level (NEGATIVE) Urine Cocaine (NEGATIVE) Urine Marijuana (THC) (NEGATIVE) Monoscreen (NEGATIVE) Influenza Type A Ag NEGATIVE (NEGATIVE) Influenza Type B Ag NEGATIVE (NEGATIVE) RSV (PCR) NEGATIVE (NEGATIVE) SARS-CoV-2 (PCR) NEGATIVE (NEGATIVE) 05/20/24 05/20/24 05/20/24 Range/Units 21:52 22:00 22:26 WBC (4.23-9.07) x10^3/uL RBC (4.63-6.08) x10^6/uL Hgb (13.7-17.5) g/dL Hct (40.1-51.0) % MCV (79.0-92.2) fL MCH (25.7-32.2) pg MCHC (32.3-36.5) g/dL RDW (11.6-14.4) % Plt Count (163-337) x10^3/uL MPV (9.4-12.4) fL Gran % (34.0-67.9) % Immature Gran % (Auto) (0.001-0.429) % Nucleat RBC Rel Count (0.00-0.2) % Eos # (Auto) (0.04-0.54) x10^3/uL Immature Gran # (Auto) (0.001-0.031) x10^3u/L Absolute Lymphs (auto) (1.32-3.57) x10^3/uL Absolute Monos (auto) (0.30-0.82) x10^3/uL Absolute Nucleated RBC (0.00-0.012) x10^3u/L Lymphocytes % (21.8-53.1) % Monocytes % (5.3-12.2) % Eosinophils % (0.8-7.0) % Basophils % (0.2-1.2) % Absolute Granulocytes (1.78-5.38) x10^3/uL Basophils # (0.01-0.08) x10^3/uL Sodium (135-145) mmol/L Potassium (3.5-5.1) mmol/L Chloride (98-107) mmol/L Carbon Dioxide (22-30) mmol/L Anion Gap (5-15) MEQ/L BUN (9-20) mg/dL Creatinine (0.66-1.25) mg/dL Estimated GFR ML/MIN Glucose (74-106) mg/dL Calcium (8.4-10.2) mg/dL Total Bilirubin (0.2-1.3) mg/dL AST (17-59) U/L ALT (0-50) U/L Alkaline Phosphatase (38-126) U/L Troponin I < 0.012 (0.000-0.033) ng/mL Serum Total Protein (6.3-8.2) g/dL Albumin (3.5-5.0) g/dL Urine Color Yellow (Yellow) Urine Appearance Clear (Clear) Urine pH 5.5 (4.6-8.0) Ur Specific [place] 1.020 (1.005-1.030) Urine Protein Negative (Negative) Urine Glucose (UA) Negative (Negative) mg/dL Urine Ketones Negative (Negative) Urine Blood Negative (Negative) Urine Nitrite Negative (Negative) Urine Bilirubin Negative (Negative) Urine Urobilinogen 1.0 A (0.2) mg/dL Ur Leukocyte Esterase Negative (Negative) U Hyaline Cast (Auto) NONE SEEN (0-2) /LPF Urine Microscopic RBC 0-2 (0-5) /HPF Urine Microscopic WBC 0-2 (0-5) /HPF Ur Epithelial Cells None Seen (None Seen) /HPF Urine Bacteria None Seen (None Seen) /HPF Urine Culture Reflexed NO (NO) Urine Opiates Level (NEGATIVE) Ur Methadone (NEGATIVE) Urine Barbiturates (NEGATIVE) Ur Phencyclidine (PCP) (NEGATIVE) Urine Amphetamine (NEGATIVE) U Benzodiazepine Level (NEGATIVE) Urine Cocaine (NEGATIVE) Urine Marijuana (THC) (NEGATIVE) Monoscreen NEGATIVE (NEGATIVE) Influenza Type A Ag (NEGATIVE) Influenza Type B Ag (NEGATIVE) RSV (PCR) (NEGATIVE) SARS-CoV-2 (PCR) (NEGATIVE) 05/20/24 05/21/24 Range/Units 22:33 02:58 WBC (4.23-9.07) x10^3/uL RBC (4.63-6.08) x10^6/uL Hgb (13.7-17.5) g/dL Hct (40.1-51.0) % MCV (79.0-92.2) fL MCH (25.7-32.2) pg MCHC (32.3-36.5) g/dL RDW (11.6-14.4) % Plt Count (163-337) x10^3/uL MPV (9.4-12.4) fL Gran % (34.0-67.9) % Immature Gran % (Auto) (0.001-0.429) % Nucleat RBC Rel Count (0.00-0.2) % Eos # (Auto) (0.04-0.54) x10^3/uL Immature Gran # (Auto) (0.001-0.031) x10^3u/L Absolute Lymphs (auto) (1.32-3.57) x10^3/uL Absolute Monos (auto) (0.30-0.82) x10^3/uL Absolute Nucleated RBC (0.00-0.012) x10^3u/L Lymphocytes % (21.8-53.1) % Monocytes % (5.3-12.2) % Eosinophils % (0.8-7.0) % Basophils % (0.2-1.2) % Absolute Granulocytes (1.78-5.38) x10^3/uL Basophils # (0.01-0.08) x10^3/uL Sodium (135-145) mmol/L Potassium (3.5-5.1) mmol/L Chloride (98-107) mmol/L Carbon Dioxide (22-30) mmol/L Anion Gap (5-15) MEQ/L BUN (9-20) mg/dL Creatinine (0.66-1.25) mg/dL Estimated GFR ML/MIN Glucose (74-106) mg/dL Calcium (8.4-10.2) mg/dL Total Bilirubin (0.2-1.3) mg/dL AST (17-59) U/L ALT (0-50) U/L Alkaline Phosphatase (38-126) U/L Troponin I < 0.012 (0.000-0.033) ng/mL Serum Total Protein (6.3-8.2) g/dL Albumin (3.5-5.0) g/dL Urine Color (Yellow) Urine Appearance (Clear) Urine pH (4.6-8.0) Ur Specific [place] (1.005-1.030) Urine Protein (Negative) Urine Glucose (UA) (Negative) mg/dL Urine Ketones (Negative) Urine Blood (Negative) Urine Nitrite (Negative) Urine Bilirubin (Negative) Urine Urobilinogen (0.2) mg/dL Ur Leukocyte Esterase (Negative) U Hyaline Cast (Auto) (0-2) /LPF Urine Microscopic RBC (0-5) /HPF Urine Microscopic WBC (0-5) /HPF Ur Epithelial Cells (None Seen) /HPF Urine Bacteria (None Seen) /HPF Urine Culture Reflexed (NO) Urine Opiates Level NEGATIVE (NEGATIVE) Ur Methadone NEGATIVE (NEGATIVE) Urine Barbiturates NEGATIVE (NEGATIVE) Ur Phencyclidine (PCP) NEGATIVE (NEGATIVE) Urine Amphetamine NEGATIVE (NEGATIVE) U Benzodiazepine Level NEGATIVE (NEGATIVE) Urine Cocaine NEGATIVE (NEGATIVE) Urine Marijuana (THC) NEGATIVE (NEGATIVE) Monoscreen (NEGATIVE) Influenza Type A Ag (NEGATIVE) Influenza Type B Ag (NEGATIVE) RSV (PCR) (NEGATIVE) SARS-CoV-2 (PCR) (NEGATIVE) - Radiology Impressions Radiology Exams & Impressions: Radiology Procedures Category Date Time Status CT ANGIOGRAPHY NECK [CT] Stat Exams 05/20/24 23:40 Completed CTA HEAD W AND/OR WO CONTRAST [CT] Stat Exams 05/20/24 23:41 Completed HEAD WITHOUT CONTRAST [CT] Stat Exams 05/20/24 21:43 Taken MRI ABD W/O CONTRAST [MRI] Routine Exams 05/21/24 03:54 Ordered Assessment/Plan (1) CVA (cerebral vascular accident) Current Visit: Yes Status: Acute Assessment & Plan: ASSESSMENT 1. Altered Mental Status 2. Acute vs. Subacute Cerebrovascular Accident 3. Hypertensive Emergency 4. Acute vs. Acute on Chronic vs. Chronic Kidney Disease PLAN 1. Mental status back to normal 2. Normal neurological examination 3. CT and CTA negative for acute pathology - but there is a focus in the caudate head which might be an acute vs. subacute CVA 4. MRI in AM 5. A1c and Lipid panel in AM 6. Allow for permissive HTN overnight 7. Gentle fluids Lovenox The entirety of this encounter was done via telemedicine with audio and visual. Consent was obtained for a telemedicine encounter. Eamon Ocampo MD Pulmonary and Critical Care Medicine Code(s): I63.9 - CEREBRAL INFARCTION, UNSPECIFIED Telemedicine Encounter - Telemedicine Encounter Telemedicine Encounter: "The entirety of this encounter was performed via Telemedicine" This visit was performed using real-time audio and video connection between my location and thepatients locationwith the assistance of a surrogateat the patients location. Written or verbal consent was obtained from the patient/guardian to perform this visit usingnchrSurvelalemedicine technology . Any patient questions regarding the telemedicine interaction were answered.
[2024-05-21] MEDS: Sodium Chloride 0.9% 1000 ML 1,000 ML IV SCH (04:05)
[2024-05-21 05:40] LABS: Basophil (Absolute #) 0.08 x10^3/uL (0.01-0.08); Eosinophil (Absolute #) 0.24 x10^3/uL (0.04-0.54); Hematocrit 40.9 % (40.1-51.0); Hemoglobin 13.5 g/dL (13.7-17.5); IMMATURE GRAN # 0.02 x10^3u/L (0.001-0.031); IMMATURE GRAN % 0.3 % (0.001-0.429); Lymphocyte (Absolute #) 2.48 x10^3/uL (1.32-3.57); Lymphocytes % 31.5 % (21.8-53.1); Mean Cell Volume 85.7 fL (79.0-92.2); Mean Corpuscular Hemoglobin 28.3 pg (25.7-32.2); Mean Platelet Volume 9.1 fL (9.4-12.4); Monocyte (Absolute #) 0.65 x10^3/uL (0.30-0.82); Monocytes % 8.3 % (5.3-12.2); Neutrophil % 55.9 % (34.0-67.9); Platelet Count 265 x10^3/uL (163-337); Red Blood Count 4.77 x10^6/uL (4.63-6.08); Red Cell Distribution Width 13.8 % (11.6-14.4); White Blood Count 7.9 x10^3/uL (4.23-9.07)
[2024-05-21 05:45] LABS: ALBUMIN 3.9 g/dL (3.5-5.0); ANION GAP 11.8 MEQ/L (5-15); BILIRUBIN,TOTAL 0.5 mg/dL (0.2-1.3); Calcium 9.1 mg/dL (8.4-10.2); Creatinine 1 1.18 mg/dL (0.66-1.25); EST GLOMERULAR FILTRATION RATE 70.6 ML/MIN; Potassium 3.7 mmol/L (3.5-5.1); Total Protein 6.4 g/dL (6.3-8.2)
[2024-05-21 07:24] LABS: TSH, 3RD Generation 2.579 mIU/L (0.470-4.680)
--- NOTE | 2024-05-21 08:41 | XRAY ---
Indication: Confusion. Stroke. Multiple contiguous axial images obtained through the head without contrast. Comparison: None Age-appropriate global atroph. Remote lacunar infarcts left basal ganglia and left caudate. No acute intracranial hemorrhage, abnormal extra-axial fluid collection, or mass effect. Fourth ventricle is midline without hydrocephalus. Engel-white matter differentiation preserved. Bony calvarium intact. Visualized paranasal sinuses and mastoid air cells are clear. Impression: Remote lacunar infarct left basal ganglia and left caudate. No acute intracranial abnormalities.
[2024-05-21] MEDS: ECOTRIN 81 MG PO SCH (11:04)
[2024-05-21] MEDS: PLAVIX Tablet PO SCH (11:04)
[2024-05-21] MEDS: ENOXAPARIN SODIUM SQ SCH (11:04)
[2024-05-21] MEDS: LIPITOR 40MG PO SCH (11:05)
[2024-05-22 06:22] LABS: Absolute Neutrophil Ct (ANC) 4.37 x10^3/uL (1.78-5.38); BASOPHIL % 0.8 % (0.2-1.2); Basophil (Absolute #) 0.06 x10^3/uL (0.01-0.08); Eosinophil % 2.8 % (0.8-7.0); Hematocrit 40.9 % (40.1-51.0); Hemoglobin 13.6 g/dL (13.7-17.5); IMMATURE GRAN # 0.02 x10^3u/L (0.001-0.031); IMMATURE GRAN % 0.3 % (0.001-0.429); Lymphocyte (Absolute #) 2.01 x10^3/uL (1.32-3.57); Lymphocytes % 27.8 % (21.8-53.1); Mean Cell Volume 85.7 fL (79.0-92.2); Mean Corpuscular Hemoglobin 28.5 pg (25.7-32.2); Mean Corpuscular Hgb Concent. 33.3 g/dL (32.3-36.5); Mean Platelet Volume 8.5 fL (9.4-12.4); Monocyte (Absolute #) 0.56 x10^3/uL (0.30-0.82); Monocytes % 7.8 % (5.3-12.2); Neutrophil % 60.5 % (34.0-67.9); Platelet Count 232 x10^3/uL (163-337); Red Blood Count 4.77 x10^6/uL (4.63-6.08); Red Cell Distribution Width 13.5 % (11.6-14.4); White Blood Count 7.2 x10^3/uL (4.23-9.07)
[2024-05-22 06:36] LABS: ALBUMIN 3.7 g/dL (3.5-5.0); ANION GAP 12.5 MEQ/L (5-15); BILIRUBIN,TOTAL 0.7 mg/dL (0.2-1.3); Calcium 8.7 mg/dL (8.4-10.2); Creatinine 1 1.19 mg/dL (0.66-1.25); EST GLOMERULAR FILTRATION RATE 69.9 ML/MIN; Potassium 3.8 mmol/L (3.5-5.1); Total Protein 6.2 g/dL (6.3-8.2)
--- NOTE | 2024-05-22 07:49 | XRAY ---
CLINICAL HISTORY: stroke like symptoms - COMPARISON: 05/20/2024 TECHNIQUE: An axial non-contrast CT scan of the brain was performed from the skull base to the high parietal region. One of the following dose reduction techniques were utilized for this exam: Automated exposure control, adjustment of the mA and/or kV according to patient size, and use of iterative reconstruction. FINDINGS: Few left basal ganglionic old lacunar infarcts. The visualized brain parenchyma shows a normal appearance. No focal parenchymal abnormalities are demonstrated. Engel-white matter differentiation is maintained. No midline shifts or deformity. No intracerebral or extra axial hematoma. Normal size and configuration of the cerebral ventricles. Normal CT appearance of the posterior fossa structures namely the cerebellar hemispheres, brainstem and cerebellar peduncles. The cerebello-pontine angles are clear. The osseous structures in the skull base are unremarkable. No definite calvarium fractures. Scanned paranasal sinuses are clear. IMPRESSION: 1. No evidence of established infarction, intracranial or extracranial hemorrhage. Early changes of stroke may not be detected on a CT scan. If strong clinical suspicion of stroke then suggest MRI with diffusion-weighted imaging. 2. Few left basal ganglionic old lacunar infarcts. 3. No significant interval changes. Electronically Signed by: Thomas Irene MD. (05/22/2024 07:45:40 EDT)
[2024-05-22 08:06] VITALS: BP 162/95; PULSE 59; RESP 17; TEMP 97.8; O2SAT 97
--- NOTE | 2024-05-22 10:17 | PCM.DS ---
Discharge Summary Date of Admission: 05/21/24 02:07 Date of Discharge: 05/22/24 Admitting Physician: RAOUL JACOBO MD Consults: Consults on Case 05/20/24 22:30 Tele-Health Consult ROUTINE Primary Care Provider: NO FAMILY DOCTOR Allergies Allergies No Known Drug Allergies Allergy (Verified 05/20/24 22:16) Hospital Summary - Hospital Course Hospital Course: Mr. Prieto is a 58 year-old with HTN, not on medication, who presented with altered mental status. As per his , he was at a sporting event (volleyball game), and he became confused - upon returning home he remained confused thus prompting further medical attention at [place]. Upon arrival, his blood pressure was noted be in the 220s systolic in the setting of unremarkable laboratory data and unremarkable brain imaging (CT and CTA). Soon after arriving in the ED, his systolic blood pressure dropped into the 150s, and his mental status started to improve. BP stable throughout hospitalization. On initial examination, he is alert, oriented, and has a normal neurological exam. Denied fevers, chills, nausea, vomiting, diarrhea, syncope, presyncope, visual changes, orthopnea, PND, odynophagia, dysphagia, chest pain, shortness of breath, belly pain, dysuria, hematuria, melena, hematochezia, or neurological changes. Neurology consulted who felt this was possible TIA vs more likely stroke with resolved symptoms. ACBD2 score 5. Recommendations for MRI and echo- Unable to perform MRI due to metal in the eye. Unable obtain ECHO as these services are not available on the weekend - will obtain as OP. Additional recs -aspirin 81mg now then daily - give plavix 300mg now then start plavix 75mg daily for 21 days, then stop plavix. For high risk TIA ABCD2 score >4 -atorvastatin 40mg qhs. Patient is at baseline. Repeat CT with no acute findings -few left basal ganglionic old lacunar infarcts. Patient anxious for discharge. Will set up OP neurology follow up as well as Echo with PCP follow up. Will dismiss with plavix/ASA x 21 days - then asa only following, and atorvastatin. Patient agreeable to plan and ready for discharge. Advised smoking cessation. Discharge Note New Diagnosis: CVA/Hypertensive urgency New Medications: aspirin 81mg now then daily - give plavix 300mg now then start plavix 75mg daily for 21 days, then stop plavix - Atorvastatin Follow Up: neurology/pcp Results pending: ECHO Outpatient testing to order: ECHO -results to PCP Latest Assessment & Plan (1) CVA (cerebral vascular accident) Current Visit: Yes Status: Acute Assessment & Plan: ASSESSMENT 1. Altered Mental Status 2. Acute vs. Subacute Cerebrovascular Accident 3. Hypertensive Emergency 4. Acute vs. Acute on Chronic vs. Chronic Kidney Disease 5. Smoker 6. HTN PLAN 1. Mental status back to normal 2. Normal neurological examination 3. CT and CTA negative for acute pathology - but there is a focus in the caudate head which might be an acute vs. subacute CVA 4. MRI in AM - unable to obtain -Repeat CT head with no acute findings - neurology recs for aspirin 81mg now then daily - give plavix 300mg now then start plavix 75mg daily for 21 days, then stop plavix - Atorvastatin - will continue 5. A1c at 6.44 and Lipid panel with LDL at 148 - atorvastatin 6. Allow for permissive HTN overnight 7. Gentle fluids - creat at baseline 8. Advised smoking cessation Shana Westfall spent 35 minutes [id number] with the patient on the day of discharge performing discharge exam, discussing hospital stay and discharge instructions with patient and caregivers, preparation of discharge records, prescriptions & referral forms and addressing any questions/concerns the patient had as docu mented above. - Vitals & Intake/Output Vital Signs: Vital Signs Temperature 97.8 F 05/22/24 08:05 Pulse Rate 59 L 05/22/24 08:05 Respiratory Rate 17 05/22/24 08:05 Blood Pressure 162/95 05/22/24 08:05 O2 Sat by Pulse Oximetry 97 05/22/24 08:05 Intake & Output: Intake & Output 05/19/24 05/20/24 05/21/24 05/22/24 11:59 11:59 11:59 11:59 Intake Total 360 1660 Balance 360 1660 Weight 89.4 kg - Lab Result Diagrams: 05/22/24 06:15 05/22/24 06:15 Lab Results-Last 24 Hrs: Lab Results-Last 24 Hours 05/22/24 05/22/24 Range/Units 06:15 06:15 WBC 7.2 (4.23-9.07) x10^3/uL RBC 4.77 (4.63-6.08) x10^6/uL Hgb 13.6 L (13.7-17.5) g/dL Hct 40.9 (40.1-51.0) % MCV 85.7 (79.0-92.2) fL MCH 28.5 (25.7-32.2) pg MCHC 33.3 (32.3-36.5) g/dL RDW 13.5 (11.6-14.4) % Plt Count 232 (163-337) x10^3/uL MPV 8.5 L (9.4-12.4) fL Gran % 60.5 (34.0-67.9) % Immature Gran % (Auto) 0.3 (0.001-0.429) % Nucleat RBC Rel Count 0.0 (0.00-0.2) % Eos # (Auto) 0.20 (0.04-0.54) x10^3/uL Immature Gran # (Auto) 0.02 (0.001-0.031) x10^3u/L Absolute Lymphs (auto) 2.01 (1.32-3.57) x10^3/uL Absolute Monos (auto) 0.56 (0.30-0.82) x10^3/uL Absolute Nucleated RBC 0.00 (0.00-0.012) x10^3u/L Lymphocytes % 27.8 (21.8-53.1) % Monocytes % 7.8 (5.3-12.2) % Eosinophils % 2.8 (0.8-7.0) % Basophils % 0.8 (0.2-1.2) % Absolute Granulocytes 4.37 (1.78-5.38) x10^3/uL Basophils # 0.06 (0.01-0.08) x10^3/uL Sodium 142 (135-145) mmol/L Potassium 3.8 (3.5-5.1) mmol/L Chloride 108 H (98-107) mmol/L Carbon Dioxide 25 (22-30) mmol/L Anion Gap 12.5 (5-15) MEQ/L BUN 18 (9-20) mg/dL Creatinine 1.19 (0.66-1.25) mg/dL Estimated GFR 69.9 ML/MIN Glucose 124 H (74-106) mg/dL Calcium 8.7 (8.4-10.2) mg/dL Total Bilirubin 0.70 (0.2-1.3) mg/dL AST 29 (17-59) U/L ALT 26 (0-50) U/L Alkaline Phosphatase 65 (38-126) U/L Serum Total Protein 6.2 L (6.3-8.2) g/dL Albumin 3.7 (3.5-5.0) g/dL - Radiology Exams Ordered Rad Exams-Entire Visit: Radiology Procedures Category Date Time Status CT ANGIOGRAPHY NECK [CT] Stat Exams 05/20/24 23:40 Completed CTA HEAD W AND/OR WO CONTRAST [CT] Stat Exams 05/20/24 23:41 Completed ECHO W/2D AND DOPPLER [US] Routine Exams 05/24/24 07:08 Ordered HEAD WITHOUT CONTRAST [CT] Routine Exams 05/22/24 08:00 Completed HEAD WITHOUT CONTRAST [CT] Stat Exams 05/20/24 21:43 Completed - Procedures and Test Procedures and Tests throughout Hospitalization: Therapy Orders & Screens 05/21/24 02:10 EKG REPEAT IN AM Comment: 05/21/24 02:36 Smoking Cessation Education ONCE Comment: Diagnosis: TIA Smoking Status: Current every day smoker How long have you smoked: 45 Do you dip or chew tobacco: No ST Screen per Nursing Assess ONCE Comment: Protocol Order Physician Instructions: Greater than [address] Admission Screening Reason For Exam: Triggered on Admission Diagnosis: TIA CVA/Dyshpagia/Aphasia: Yes Cognitive Deficits: No Dehydration/Nutrition Deficit: No Reflux: No Oral-Motor Difficulties: No Pneumonia: No Skilled Nursing Resident: No Total Points: 5 Discharge Exam General Appearance: no apparent distress Neurologic Exam: alert, oriented x 3, cooperative Eye Exam: PERRL Ears, Nose, Throat Exam: normal ENT inspection Neck Exam: normal inspection Respiratory Exam: normal breath sounds, lungs clear Cardiovascular Exam: regular rate/rhythm, normal heart sounds Gastrointestinal/Abdomen Exam: soft, normal bowel sounds Male Genitalia Exam: deferred Rectal Exam: deferred Back Exam: normal inspection Extremity Exam: normal inspection Skin Exam: normal color Final Diagnosis/Problem List - Final Discharge Diagnosis/Problem (1) CVA (cerebral vascular accident) Current Visit: Yes Status: Acute Code(s): I63.9 - CEREBRAL INFARCTION, UNSPECIFIED (2) AMS (altered mental status) Current Visit: Yes Status: Resolved Code(s): R41.82 - ALTERED MENTAL STATUS, UNSPECIFIED (3) HTN (hypertension) Current Visit: Yes Status: Chronic Code(s): I10 - ESSENTIAL (PRIMARY) H YPERTENSION (4) Hypertensive urgency Current Visit: Yes Status: Resolved Code(s): I16.0 - HYPERTENSIVE URGENCY (5) Smoker Current Visit: Yes Status: Chronic Code(s): F17.200 - NICOTINE DEPENDENCE, UNSPECIFIED, UNCOMPLICATED - Discharge Disposition: Home, Self-Care Condition: Stable Prescriptions: New Aspirin EC 81 mg [Ecotrin 81 mg] 81 mg PO DAILY 30 Days #30 tablet Atorvastatin Calcium [Lipitor 40Mg] 40 mg PO DAILY 30 Days #30 tablet Clopidogrel Bisulfate [PLAVIX Tablet] 75 mg PO DAILY 21 Days #21 tablet Additional Instructions: Patient provided with PCP list - Please set up appt in the 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 Follow up with: DOCTOR,NO FAMILY [Primary Care Provider] - Call for Appointment (List provided - set up with PCP next week - )
== END 2024-05-22 11:10 | disposition home or self-care (01) ==
LOC: ED 21:13 → MED SURG 05-21 02:07
PROVIDERS: ADMIT Internal Medicine Critical Care Medicine; ATTEND Internal Medicine Critical Care Medicine
DX: I63.9 Cerebral infarction, unspecified (principal); R41.82 Altered mental status, unspecified; I10 Essential (primary) hypertension; I16.0 Hypertensive urgency; F17.200 Nicotine dependence, unspecified, uncomplicated; W19.XXXA Unspecified fall, initial encounter
CPT/HCPCS: 0241U; 36000; 36415; 70450; 70496; 70498; 80053; 80061; 80307; 81001; 83036; 83721; 84443; 84484; 85025; 86308; 93005; 93041; 93268; 94760; 99291; G0378; Q3014; 99284; J1650; A9270-GY